=== PATIENT | male | born 1940 | race Hispanic/Latino ===

== ENCOUNTER 2023-01-31 13:20 | Emergency (ER) | payer MEDICARE, OTHER ==
[~2023-01-31] VITALS: Ht 165.1 cm; Wt 66.7 kg
[~2023-01-31 13:20] MED LIST: AMLO-257 PO; ASPI-1197 PO; ATEN25TA PO; CHOL500045 PO; FINA5TAB41 PO; GABA300C PO; HYDR-3422 PO; MULT-1367 PO; OMEG-148 PO; RAMI5CAP66 PO; ROSU20TA73 PO; SERT-440 PO; TAMS-1 PO
[2023-01-31 13:21] VITALS: BP 179/83; PULSE 64; RESP 20
[2023-01-31 14:05] LABS: SARS-CoV-2, RNA, NAAT NEGATIVE SARS CoV-2 (NEGATIVE)
[2023-01-31 14:07] LABS: INFLUENZA TYPE A Negative For Type A (NEGATIVE); INFLUENZA TYPE B Negative For Type B (NEGATIVE)
[2023-01-31] MEDS ORDERED: DOXY100T2 PO (14:38)
[2023-01-31] MEDS ORDERED: GUAI600T50 PO (14:38)
[2023-01-31] MEDS ORDERED: BENZ-39 PO (14:38)
== END 2023-01-31 15:14 | disposition home or self-care (01) ==
LOC: EDH 13:20
DX: J18.0 Bronchopneumonia, unspecified organism (principal); R91.8 Other nonspecific abnormal finding of lung field; I10 Essential (primary) hypertension; E78.00 Pure hypercholesterolemia, unspecified; Z20.822 Contact with and (suspected) exposure to COVID-19; Z79.82 Long term (current) use of aspirin; Z79.899 Other long term (current) drug therapy; Z88.5 Allergy status to narcotic agent; Z88.8 Allergy status to other drugs, medicaments and biological substances
CPT/HCPCS: 99284; 71045; 87635; 87804 ×2; C9803

== ENCOUNTER → 2023-04-06 | Outpatient (CLI) | payer OTHER ==
[~2023-04-06] MED LIST changes: +BENZ-39 PO; +DOXY100T2 PO; +GUAI600T50 PO; +REGADENOSON 0.4 MG/5 ML PF SYG IVP ONE
== END | disposition home or self-care (01) ==
LOC: SHCH 08:44
PROVIDERS: ATTEND Internal Medicine Cardiovascular Disease
DX: I20.9 Angina pectoris, unspecified (principal)
CPT/HCPCS: 78452; 96374; 93017; J2785; A9500 ×2

== ENCOUNTER → 2023-07-10 | Outpatient (CLI) | payer OTHER ==
[~2023-07-10] MED LIST changes: -REGADENOSON 0.4 MG/5 ML PF SYG IVP ONE
== END | disposition home or self-care (01) ==
LOC: SHCH 13:49
PROVIDERS: ATTEND Internal Medicine Cardiovascular Disease
DX: I08.8 Other rheumatic multiple valve diseases (principal)
CPT/HCPCS: 93306